=== PATIENT | male | born 1990 | race Caucasian/White ===

== ENCOUNTER 2025-03-14 23:06 | Emergency (ER) | payer OTHER ==
[~2025-03-14] VITALS: Ht 182.9 cm; Wt 90.7 kg
[2025-03-14 23:46] VITALS: BP 128/75; TEMP 98.1; O2SAT 98
== END 2025-03-14 23:46 | disposition home or self-care (01) ==
LOC: ER 23:16
DX: F41.9 Anxiety disorder, unspecified (principal); I10 Essential (primary) hypertension